=== PATIENT | male | born 1965 ===

== ENCOUNTER → 2017-05-15 | Outpatient (CLI) | payer OTHER | END | disposition home or self-care (01) | LOC: PPH VACUNA 14:38 | DX: Z23 Encounter for immunization (principal) ==

== ENCOUNTER 2018-03-12 13:19 | Inpatient (IN) | payer OTHER ==
[~2018-03-12] VITALS: Ht 172.7 cm; Wt 88.8 kg
[2018-03-14] MEDS ORDERED: MIRALAX17 GM PO ×2 (09:44)
[2018-03-14] MEDS ORDERED: PERCOCET 5-3251 EACH PO ×2 (09:44)
[2018-03-14] MEDS ORDERED: NEURONTIN300 MG PO ×2 (09:44)
== END 2018-03-16 11:05 | disposition home or self-care (01) | DRG 355 ==
LOC: CIR.AMB → EDBD → EDSTATUS 03-14 07:00 → CIR.AMB 03-14 07:00 → SURH 03-14 12:20 → CIR.AMB 03-14 13:18 → EDBD 03-16 11:05 → SURH 03-16 11:05
PROVIDERS: Urology; ADMIT Surgery
PROC: 0TJ98ZZ Inspection of Ureter, Via Natural or Artificial Opening Endoscopic (ICD-10-PCS; 2018-03-14)
PROC: 0WQF4ZZ Repair Abdominal Wall, Percutaneous Endoscopic Approach (ICD-10-PCS; principal; 2018-03-14 07:00)
PROC: 0T768DZ Dilation of Right Ureter with Intraluminal Device, Via Natural or Artificial Opening Endoscopic (ICD-10-PCS; 2018-03-14 07:00)
DX: K42.0 Umbilical hernia with obstruction, without gangrene (principal); N21.1 Calculus in urethra; N20.0 Calculus of kidney

== ENCOUNTER 2018-03-12 18:20 | Outpatient (CLI) | payer OTHER ==
[2018-03-14] MEDS ORDERED: NEURONTIN300 MG PO (09:44)
[2018-03-14] MEDS ORDERED: PERCOCET 5-3251 EACH PO (09:44)
[2018-03-14] MEDS ORDERED: MIRALAX17 GM PO (09:44)
== END 2018-03-12 18:35 | disposition home or self-care (01) ==
LOC: EDBD 18:20 → RAD 18:20
DX: N20.1 Calculus of ureter (principal)

== ENCOUNTER 2018-03-12 21:01 | Emergency (ER) | payer OTHER ==
[~2018-03-12] VITALS: Ht 172.7 cm; Wt 88.5 kg
[2018-03-14] MEDS ORDERED: NEURONTIN300 MG PO (09:44)
[2018-03-14] MEDS ORDERED: PERCOCET 5-3251 EACH PO (09:44)
[2018-03-14] MEDS ORDERED: MIRALAX17 GM PO (09:44)
== END 2018-03-12 22:29 | disposition home or self-care (01) ==
LOC: ER 21:01 → EDBD 21:04 → ER 21:04
DX: N20.0 Calculus of kidney (principal); N23 Unspecified renal colic

== ENCOUNTER 2018-03-19 06:00 | Day surgery (SDC) | payer OTHER ==
[~2018-03-19 06:00] MED LIST: MIRALAX17 GM PO; NEURONTIN300 MG PO; PERCOCET 5-3251 EACH PO
== END 2018-03-19 11:45 | disposition home or self-care (01) ==
LOC: CIR LITO 06:00
DX: N20.0 Calculus of kidney (principal)

== ENCOUNTER 2018-04-23 13:24 | Outpatient (CLI) | payer OTHER | END 2018-04-23 15:46 | disposition home or self-care (01) | LOC: SONOGRAMA 13:24 | DX: N20.0 Calculus of kidney (principal) ==

== ENCOUNTER 2018-04-23 13:25 | Outpatient (CLI) | payer OTHER | END 2018-04-23 13:32 | disposition home or self-care (01) | LOC: LAB 13:25 | DX: N20.0 Calculus of kidney (principal) ==

== ENCOUNTER → 2020-03-03 | Outpatient (CLI) | payer OTHER | END | disposition home or self-care (01) | LOC: PPH VACUNA 07:32 | DX: Z23 Encounter for immunization (principal) ==

== ENCOUNTER 2021-01-18 09:26 | Outpatient (CLI) | payer OTHER | END 2021-01-18 09:28 | disposition home or self-care (01) | LOC: PPH VACUNA 09:26 | PROVIDERS: ATTEND Emergency Medicine Pediatric Emergency Medicine | DX: Z23 Encounter for immunization (principal) ==

== ENCOUNTER 2021-01-18 13:21 | Outpatient (CLI) | payer OTHER | END 2021-01-18 13:23 | disposition home or self-care (01) | LOC: PPH VACUNA 13:21 | PROVIDERS: ATTEND Emergency Medicine Pediatric Emergency Medicine | DX: Z23 Encounter for immunization (principal) ==

== ENCOUNTER 2022-08-21 10:12 | Outpatient (CLI) | payer OTHER | END 2022-08-21 13:23 | disposition home or self-care (01) | LOC: LAB 10:12 | PROVIDERS: ATTEND Obstetrics & Gynecology | DX: J06.9 Acute upper respiratory infection, unspecified (principal); R06.02 Shortness of breath; Z30.2 Encounter for sterilization; A64 Unspecified sexually transmitted disease; A63.8 Other specified predominantly sexually transmitted diseases; A53.9 Syphilis, unspecified ==

== ENCOUNTER 2023-04-10 12:41 | Outpatient (CLI) | payer OTHER | END 2023-04-10 14:06 | disposition home or self-care (01) | LOC: LAB 12:41 | PROVIDERS: ATTEND Obstetrics & Gynecology | DX: J10.1 Influenza due to other identified influenza virus with other respiratory manifestations (principal); Z11.3 Encounter for screening for infections with a predominantly sexual mode of transmission ==